=== PATIENT | female | born 1990 | race Caucasian/White ===

== ENCOUNTER 2023-04-28 21:09 | Emergency (ER) | payer SELFPAY ==
[~2023-04-28] VITALS: Ht 165.1 cm; Wt 108.9 kg
[2023-04-28 21:23] VITALS: BP_SYST 102; PULSE 100; RESP 18; TEMP 98.3; O2SAT 99
[2023-04-28] MEDS ORDERED: DIPHTH,PERTUSS(ACELL),TET VAC 0.5 ML VIAL (Tdap) I.M. ONE (22:15)
[2023-04-28] MEDS ORDERED: LIDOCAINE 1% 10 MG/ML, 20 ML MDV INJ ONE (22:15)
[2023-04-28] MEDS ORDERED: CEPH-548 PO (22:32)
[2023-04-28] MEDS ORDERED: IBUP-1969 PO (22:32)
[2023-04-28 22:37] VITALS: BP_SYST 116; PULSE 89; RESP 18; TEMP 99.1; O2SAT 95
== END 2023-04-28 22:37 | disposition home or self-care (01) ==
LOC: SED 21:09
DX: L02.416 Cutaneous abscess of left lower limb (principal); F17.200 Nicotine dependence, unspecified, uncomplicated; Z79.899 Other long term (current) drug therapy
CPT/HCPCS: 99283; 10060; 90715; 90471; J2001